=== PATIENT | male | born 1965 | race Caucasian/White ===

== ENCOUNTER 2018-12-14 12:42 | Inpatient (IN) | payer OTHER ==
[2018-12-14 13:36] VITALS: BMI 27.0
--- NOTE | 2018-12-14 15:01 | HP ---
COWS - Scale Resting Pulse: 0= [place] 80 or Below Sweatin= No chills or Flushing Restless Observation: 1= Difficult to Sit Still Pupil Size: 0= Normal to Room Light Bone or Joint Aches: 4=Acute Joint/Muscle Pain Runny Nose/ Eye Tearin= Runny Nose/Eyes GI Upset > 30mins: 2= Nausea/Diarrhea Tremor Observation: 0= None Yawning Observation: 0= None Anxiety or Irritability: 2=Irritable/Anxious Goose Flesh Skin: 0=Smooth Skin COWS Score: 11 CIWA Score - Admission Criteria OAS Guidelines: Admission for Medically Managed Detox: Requires at least one of the followin. CIWA greater than 12 2. Seizures within the past 24 hours 3. Delirium tremens within the past 24 hours 4. Hallucinations within the past 24 hours 5. Acute intervention needed for co occurring medical disorder 6. Acute intervention needed for co occurring psychiatric disorder 7. Severe withdrawal that cannot be handled at a lower level of care (continued vomiting, continued diarrhea, abnormal vital signs) requiring intravenous medication and/or fluids 8. Admission [facility] Allergies/Adverse Reactions: Allergies Allergy/AdvReac Type Severity Reaction Status Date / Time Penicillins Allergy Intermediate Verified 12/14/18 13:29 History of Present Illness: Search Terms: mary shi, 1965 Search Date: 12/14/2018 02:54:11 PM The Drug Utilization Report below displays all of the controlled substance prescriptions, if any, that your patient has filled in the last twelve months. The information displayed on this report is compiled from pharmacy submissions to the Department, and accurately reflects the information as submitted by the pharmacies. This report was requested by: Doreen Lu | Reference #: [id number] Others' Prescriptions Patient Name: Mary Shi Date: 1965 Address: [address] [place] [address] Sex: Male Rx Written Rx Dispensed Drug Quantity Days Supply Prescriber Name 12/04/2018 12/05/2018 buprenorphine-naloxone 8-2 mg sl film 90 30 Ashley Marky 10/09/2018 10/11/2018 buprenorphine-naloxone 8-2 mg sl film 90 30 Marky Ramirez 09/13/2018 09/14/2018 suboxone 8 mg-2 mg sl film 90 30 Marky Ramirez 08/07/2018 08/08/2018 suboxone 8 mg-2 mg sl film 90 30 Marky Ramirez 07/03/2018 07/04/2018 suboxone 8 mg-2 mg sl film 90 30 Yanci Ramirezh 05/17/2018 05/18/2018 suboxone 8 mg-2 mg sl film 90 30 Yanci Ramirezh 05/17/2018 05/17/2018 zolpidem tartrate 5 mg tablet 30 30 Yanci Ramirezh 02/13/2018 02/13/2018 buprenorphine-naloxone 8-2 mg sl tablet 90 30 Marky Ramirez 01/09/2018 01/10/2018 buprenorphine-naloxone 8-2 mg sl tablet 90 30 Marky Ramirez Patient Name: Mary Shi Date: 1965 Address: [address] [place] [address] Sex: Male Rx Written Rx Dispensed Drug Quantity Days Supply Prescriber Name 11/13/2018 11/29/2018 alprazolam 2 mg tablet 30 30 Sandra Trujillo [employer] 10/10/2018 10/10/2018 alprazolam 2 mg tablet 60 30 Sandra Trujillo [employer] 10/10/2018 10/10/2018 zolpidem tartrate 10 mg tablet 30 30 Sandra Trujillo [employer] 09/12/2018 10/02/2018 alprazolam 2 mg tablet 30 30 Sandra Trujillo [employer] ENG[employer]ERING TE[employer] 09/12/2018 09/12/2018 alprazolam 2 mg tablet 60 30 Sandra Trujillo [employer] ENG[employer]ERING TE[employer] 09/12/2018 09/12/2018 zolpidem tartrate 10 mg tablet 30 30 Sandra Trujillo [employer] ENG[employer]ERING TE[employer] 08/15/2018 09/04/2018 alprazolam 2 mg tablet 30 30 Sandra Trujillo [employer] ENG[employer]ERING TE[employer] 08/15/2018 08/16/2018 alprazolam 2 mg tablet 60 30 Sandra Trujillo [employer] ENG[employer]ER[employer] 08/15/2018 08/16/2018 zolpidem tartrate 10 mg tablet 30 30 Sandra Trujillo [employer] ENG[employer]ERING TE[employer] 07/11/2018 08/08/2018 alprazolam 2 mg tablet 30 30 Sandra Trujillo [employer] ENG[employer]ERING TE[employer] 07/11/2018 07/19/2018 zolpidem tartrate 10 mg tablet 30 30 Sandra Trujillo [employer] ENG[employer]ERING TE[employer] 07/11/2018 07/19/2018 alprazolam 2 mg tablet 60 30 Sandra Trujillo [employer] ENGINEERING TE[employer] 06/13/2018 07/10/2018 alprazolam 2 mg tablet 30 30 Sandra Trujillo [employer] ENG[employer]ERING TE[employer] 06/13/2018 06/19/2018 zolpidem tartrate 10 mg tablet 30 30 Sandra Trujillo [employer] ENGINEERING TE[employer] 06/13/2018 06/19/2018 alprazolam 2 mg tablet 60 20 Sandra Trujillo [employer] ENG[employer]ER[employer] 05/16/2018 05/18/2018 alprazolam 2 mg tablet 60 30 Sandra Trujillo [employer] Patient Name: Mary Shi Date: 1965 Address: [address] [facility] [address] [place] [address] Sex: Male Rx Written Rx Dispensed Drug Quantity Days Supply Prescriber Name 04/18/2018 04/18/2018 zolpidem tartrate 10 mg tablet 30 30 Sandra Trujillo [employer] 04/18/2018 04/18/2018 alprazolam 2 mg tablet 30 30 Sandra Trujillo [employer] ENGINEERING TE[employer]ER 04/18/2018 04/18/2018 alprazolam 2 mg tablet 60 30 Sandra Trujillo [employer] ENGINEERING TE[employer]ER 03/21/2018 03/21/2018 zolpidem tartrate 10 mg tablet 30 30 Sandra Trujillo [employer] ENGINEERING TE[employer] 03/21/2018 03/21/2018 alprazolam 2 mg tablet 30 30 Sandra Trujillo [employer] ENGINEERING TE[employer]ER 03/21/2018 03/21/2018 alprazolam 2 mg tablet 60 30 Sandra Trujillo [employer] ENGINEERING TE[employer]ER 02/21/2018 02/21/2018 zolpidem tartrate 10 mg tablet 30 30 Sandra Trujillo [employer]CH[employer] ENGINEERING TE[employer]ER 02/21/2018 02/21/2018 alprazolam 2 mg tablet 30 30 Sandra Trujillo [employer] ENGINEERING TE[employer]ER 02/21/2018 02/21/2018 alprazolam 2 mg tablet 60 20 Sandra Trujillo [employer] ENGINEERING TE[employer]ER 01/24/2018 01/24/2018 alprazolam 2 mg tablet 60 30 Sandra Trujillo [employer] ENGINEERING TE[employer]ER 01/24/2018 01/24/2018 alprazolam 2 mg tablet 30 30 Sandra Trujillo [employer] ENGINEERING TE[employer]ER 01/24/2018 01/24/2018 zolpidem tartrate 10 mg tablet 30 30 Sandra Trujillo [employer] ENGINEERING TE[employer]ER 12/27/2017 12/27/2017 alprazolam 2 mg tablet 60 30 Sandra Trujillo [employer] ENGINEERING TEACHER 12/27/2017 12/27/2017 alprazolam 2 mg tablet 30 30 Sandra Trujillo [employer] ENGINEERING TE[employer]ER 12/27/2017 12/27/2017 zolpidem tartrate 10 mg tablet 30 30 Sandra Trujillo [employer] ENGINEERING TE[employer]ER * - Drugs marked with an asterisk are compound drugs. If the compound drug is made up of more than one controlled substance, then each controlled substance will be a separate row in the table. Click the Report Suspicious Activity button to report information related to controlled substance suspicious activity to the [employer]. Click the Send Questions/Comments button to send questions about this report to the [employer], or call . Click the Substance Abuse Treatment Information button to go to the Office of Alcoholism and Substance Abuse Services website, www.[place].gov or call 1- 780.936.6108. pt here requesting detox from heroin use , reports 7-10 bags/day via inhalation , denies ivdu , claims loss of apartment several days ago and " lost all my medication " , latest heroin use yesterday 9 pm , current symptoms as above , first age of use 35 , denies significant sobriety since , OD x 1 6 months ago , narcan @ [facility] . States he was @ [facility] today , no beds available, referred to this facility . denies MMTP tobAcco : 1/2 ppd denies other illicits or etoh PMhx : seizure d/o since 30 yrs ago ( strong FHX seizure d/o , denies injuries ) , HTN PSHX : r hand laceration psych : depression , bipolar d/o , + suicide attempt most recently 1 yr ago by hanging , taken to [facility], total lifetime attemtpts : 2 , denies current SI / HI . SHX : homeless, unemployed , finances habit through [employer] funds , denies legal issues . Exam Limitations: Clinical Condition - Ebola screening Have you traveled outside of the country in the last 21 days: No Have you had contact with anyone from an Ebola affected area: No Do you have a fever: No - Review of Systems Constitutional: See HPI, Loss of Appetite EENT: reports: See HPI Respiratory: reports: No Symptoms reported Cardiac: reports: No Symptoms Reported GI: reports: See HPI : reports: No Symptoms Reported Musculoskeletal: reports: See HPI Integumentary: reports: No Symptoms Reported Neuro: reports: See HPI Endocrine: reports: No Symptoms Reported (denies DM) Psychiatric: reports: Orientated x3, Anxious Patient History - Smoking Cessation Smoking history: Current every day smoker Have you smoked in the past 12 months: Yes Initiated information on smoking cessation: No - Substances abused Heroin Substance route: Inhalation Frequency: Daily Amount used: 10BAGS Age of first use: 35 Date of last use: 12/13/18 Family Disease History - Family Disease History Family Disease History: Heart Disease: Father (d. 70 mi ), Brother (d. 55 mi ), Other: Father, Brother Admission Physical Exam BHS - Vital Signs Vital Signs: Vital Signs - 24 hr 12/14/18 13:15 Temperature 98.6 F Pulse Rate 57 L Respiratory 18 Rate Blood Pressure 140/79 - Physical General Appearance: Yes: Disheveled, Moderate Distress, Anxious, Other (poor personal hygiene) HEENTM: Yes: EOMI, Hearing grossly Normal, Normocephalic, Normal Voice, Other ( upper and lower dentures) Respiratory: Yes: Chest Non-Tender, Lungs Clear, Normal Breath Sounds Neck: Yes: No masses,lesions,Nodules, Trachea in good position Cardiology: Yes: Regular Rhythm, Regular Rate, S1, S2 Abdominal: Yes: Non Tender, Soft, Protuberent Back: Yes: Normal Inspection Musculoskeletal: Yes: Gait Steady Extremities: Yes: Normal Range of Motion, Non-Tender Neurological: Yes: Alert, Motor Strength 5/5 Integumentary: Yes: Warm - Diagnostic (1) Opiate dependence Current Visit: Yes Status: Acute Qualifiers: Substance use status: in withdrawal Qualified Code(s): F11.23 - Opioid dependence with withdrawal (2) Nicotine dependence Current Visit: Yes Status: Chronic Qualifiers: Nicotine product type: cigarettes Breathalyzer - Breathalyzer Breathalyzer: 0 Urine Drug Screen - Test Device Lot number: [id number] Expiration date: 08/31/20 - Control Is test valid?: Yes - Results Drug screen NEGATIVE: No Urine drug screen results: MOP-Opiates, OXY-Oxycodone, MTD-Methadone, BZO- Benzodiazepines Inpatient Rehab Admission - Rehab Decision to Admit Inpatient rehab admission?: No
[2018-12-14] MEDS ORDERED: MELATONIN 5 MG TABLETS PO PRN (15:24)
[2018-12-14] MEDS ORDERED: BISMUTH SUBSALICYLATE 524 MG/30 ML UD PO PRN (15:24)
[2018-12-14] MEDS ORDERED: MAGNESIUM HYDROX 2400MG/30ML ORAL SUSPENSION 30 ML CUP PO PRN (15:24)
[2018-12-14] MEDS ORDERED: METHOCARBAMOL 500 MG TABLET PO PRN (15:24)
[2018-12-14] MEDS ORDERED: MAGNESIUM CITRATE 300 ML BOTTLE PO PRN (15:24)
[2018-12-14] MEDS ORDERED: IBUPROFEN 400 MG TABLET (FP) PO PRN (15:24)
[2018-12-14] MEDS ORDERED: MAG HYDROX/AL HYDROX/SIMETH 30 ML UNIT-DOSE CUP PO PRN (15:24)
[2018-12-14] MEDS ORDERED: DICYCLOMINE HCL 10 MG CAPSULE PO PRN (15:24)
[2018-12-14] MEDS ORDERED: cloNIDine HCL 0.1 MG TABLET PO PRN (15:24)
[2018-12-14] MEDS ORDERED: ACETAMINOPHEN 325 MG TABLET (FP) PO PRN ×2 (15:24)
[2018-12-14] MEDS ORDERED: MENTHOL/PHENOL 1 EACH UD MM PRN (15:24)
[2018-12-14] MEDS: chlordiazePOXIDE HCL 10 MG CAPSULE PO PRN (16:33)
[2018-12-14] MEDS ORDERED: METHADONE HCL 10 MG TABLET (FOR DETOX USE ONLY) PO ONE ×2 (18:00→23:00)
[2018-12-14] MEDS: PHENYTOIN NA EXTENDED 100 MG CAPSULE (FP) PO SCH (22:53)
[2018-12-14] MEDS: chlordiazePOXIDE HCL 25 MG CAPSULE PO SCH (22:53)
[2018-12-14] MEDS: THIAMINE HCL 100 MG TABLET (FP) PO SCH (22:53)
[2018-12-15] MEDS: chlordiazePOXIDE HCL 25 MG CAPSULE PO SCH ×2 (05:59→12:46)
[2018-12-15] MEDS ORDERED: METHADONE HCL 5 MG TABLET (FOR DETOX USE ONLY) PO ONE (10:00)
[2018-12-15 10:07] LABS: HEMATOCRIT 42.7 % (35.4-49); MCH 31.4 pg (25.7-33.7); MCHC 32.8 g/dl (32.0-35.9); MEAN CELL VOLUME 95.8 fl (80-96); MEAN PLT VOLUME 9.6 fl (7.5-11.1); PLATELET COUNT 170 K/MM3 (134-434); RBC 4.46 M/mm3 (4.00-5.60); RDW 14.5 % (11.9-15.9); WHITE BLOOD COUNT 5.6 K/mm3 (4.0-10.0)
[2018-12-15 10:08] LABS: ALBUMIN 3.3 g/dl (3.4-5.0); BILIRUBIN,TOTAL 0.2 mg/dL (0.2-1); CALCIUM 8.3 mg/dL (8.5-10.1); CREATININE 0.7 mg/dL (0.55-1.3); POTASSIUM 4.2 mmol/L (3.5-5.1); TOT PROT 6.4 g/dl (6.4-8.2)
[2018-12-15] MEDS: levETIRAcetam 500 MG TABLET (FP) PO SCH (10:11)
[2018-12-15] MEDS: PRENATAL VITAMINS W/ FOLIC ACID TABLET (FP) PO SCH (10:11)
[2018-12-15] MEDS: PHENYTOIN NA EXTENDED 100 MG CAPSULE (FP) PO SCH ×2 (10:11→22:11)
[2018-12-15] MEDS ORDERED: FLU VACCINE QUAD 60 MCG/0.5 ML (MDV 18-19) IM ONE (12:00)
[2018-12-15] MEDS ORDERED: PNEUMOC 13-VAL CONJ-DIP CRM/PF 0.5 ML DISP.SYRIN IM ONE (12:00)
[2018-12-15] MEDS ORDERED: PNEUMOCOCCAL 23 VACCINE 0.5 ML VIAL IM ONE (12:00)
--- NOTE | 2018-12-15 13:38 | EKG ---
Test Reason : Blood Pressure : / mmHG Vent. Rate : 056 BPM Atrial Rate : 056 BPM P-R Int : 128 ms QRS Dur : 088 ms QT Int : 422 ms P-R-T Axes : 007 052 043 degrees QTc Int : 407 ms SINUS BRADYCARDIA OTHERWISE NORMAL ECG NO PREVIOUS ECGS AVAILABLE Confirmed by JUAN CARLOS WILLIAMSON MD ([id number]) on 12/15/2018 1:38:06 PM Referred By: Confirmed By:JUAN CARLOS WILLIAMSON MD
[2018-12-15] MEDS ORDERED: LIDOCAINE VISCOUS 2% ORAL/TOP 20 ML UNIT-DOSE CUP MM PRN (14:47)
--- NOTE | 2018-12-15 14:51 | PN ---
BHS COWS - Scale Resting Pulse: 1= [place] 81-100 Sweatin= Chills/Flushing Restless Observation: 1= Difficult to Sit Still Pupil Size: 0= Normal to Room Light Bone or Joint Aches: 2= Severe Diffuse Aches Runny Nose/ Eye Tearin= None GI Upset > 30mins: 1= Stomach Cramp Tremor Observation of Outstretched Hands: 0= None Yawning Observation: 1= 1-2x During Session Anxiety or Irritability: 2=Irritable/Anxious Goose Flesh Skin: 3=Piloerection COWS Score: 12 BHS Progress Note (SOAP) Subjective: Stomach Cramping, Anxious, Body Aches. Objective: PATIENT A & O X 2 (UNCERTAIN ABOUT CURRENT DAY / DATE). PATIENT OBSERVED AMBULATING ON UNIT UNASSISTED. IN NO ACUTE DISTRESS. 12/15/18 14:50 Vital Signs Temperature 98.4 F 12/15/18 13:10 Pulse Rate 69 12/15/18 13:10 Respiratory Rate 18 12/15/18 13:10 Blood Pressure 131/89 12/15/18 13:10 O2 Sat by Pulse Oximetry (%) Laboratory Tests 12/15/18 12/15/18 12/15/18 07:00 07:00 07:00 WBC 5.6 RBC 4.46 Hgb 14.0 Hct 42.7 MCV 95.8 MCH 31.4 MCHC 32.8 RDW 14.5 Plt Count 170 MPV 9.6 Sodium 139 Potassium 4.2 Chloride 106 Carbon Dioxide 27 Anion Gap 6 L BUN 17 Creatinine 0.7 Est GFR (CKD-EPI)AfAm 124.87 Est GFR (CKD-EPI)NonAf 107.74 Random Glucose 111 H Calcium 8.3 L Total Bilirubin 0.2 AST 9 L ALT 29 Alkaline Phosphatase 96 Total Protein 6.4 Albumin 3.3 L Phenytoin < 0.4 L RPR Titer 12/15/18 07:00 WBC RBC Hgb Hct MCV MCH MCHC RDW Plt Count MPV Sodium Potassium Chloride Carbon Dioxide Anion Gap BUN Creatinine Est GFR (CKD-EPI)AfAm Est GFR (CKD-EPI)NonAf Random Glucose Calcium Total Bilirubin AST ALT Alkaline Phosphatase Total Protein Albumin Phenytoin RPR Titer Nonreactive LABS NOTED. ADMISSION DILATNIN LEVEL NOTED TO BE LOW. 12/15/18 14:53 Assessment: 12/15/18 14:50 WITHDRAWAL SYMPTOMS. ORAL / GUM INFECTION. LOW DILANTIN LEVEL. 12/15/18 14:53 Plan: CONTINUE DETOX. DILANTIN, 300 MG PO X 1 DOSE ORDERED (200 MG PO BID ALREADY ORDERED) FOR LOW DILANTIN LEVEL NOTED ON DETOX ADMISSION. PATIENT REPORTS DISCOMFORT ON LOWER GUM AREA (ANTERIOR) X APPROX. 1 MONTH. PATIENT REPORTS THAT HE BELIEVES THIS TO BE DUE TO PROBLEM THAT HE HAS BEEN HAVING WITH HIS LOWER DENTURE RECENTLY. CLINDAMYCIN PO ORDERED, PRN VISCOUS LIDOCAINE MOUTHWASH ORDERED FOR ORAL DISCOMFORT.
[2018-12-15] MEDS ORDERED: PHENYTOIN NA EXTENDED 100 MG CAPSULE (FP) PO ONE (14:52)
--- NOTE | 2018-12-15 15:50 | CONSULT ---
[facility] Psychiatric Consult - Data Date of interview: 12/15/18 Admission source: [facility] Identifying data: [facility] ([facility]). Examined at [address] [place] [address]. Patient is ( three years ago), no children, homeless, unemployed and supported on SSI benefits. Substance Abuse History: Discussed in session. patient confirmed use of heroin via snorting for past 20 years. Details in current [facility] report : Smoking history : Current every day smoker. Have you smoked in the past 12 months: Yes. Initiated information on smoking cessation: No. Substances abused. Heroin. Substance route: Inhalation. Frequency: Daily. Amount used: 10BAGS. Age of first use: 35. Date of last use: 12/13/18 Medical History: Seizure disorder (on levetiracetam). Psychiatric History: Patient endorses a history of multiple psychiatric hospitalizations ([facility]). Spent six consecutive months at [facility], a psychiatric institution in [facility]. Diagnosed with MDD and Bipolar Disorder. Mr Mosqueda sees a psychiatrist, at [facility] in the [place], for medication management (gabapentin 300 mg/ tid + olanzapine 15 mg/hs + cogentin 1 mg/day and xanax (dose not recalled). Patient admits to being inconsistent with medication intake. He reports a family history of completed suicides (a brother killed himself via hanging 14 years ago + a sister fatally shot herself 10 years ago). Patient, himself, has made three serious suicide attempts via hanging (most recent attempt occurred in 2018). Physical/Sexual Abuse/Trauma History: Denies history of abuse. Heavy trauma : two siblings committed suicide, recent of , homelessness, financial difficulties and absence of a support network. Additional Comment: Urine drug screen results: MOP-Opiates, OXY-Oxycodone, MTD- Methadone, BZO-Benzodiazepines. Noted. Mental Status Exam - Mental Status Exam Alert and Oriented to: Time, Place, Person Cognitive Function: Grossly Intact Patient Appearance: Unkempt, Disheveled Mood: Angry, Nervous, Withdrawn, Anxious, Irritable Affect: Mood Congruent, Constricted Patient Behavior: Fatigued, Talkative, Cooperative Speech Pattern: Clear, Appropriate Voice Loudness: Normal Thought Process: Goal Oriented Thought Disorder: Not Present Hallucinations: Denies Suicidal Ideation: Denies (no active suicidal ideation elicited but the patient indicates that he feels safe in this environment; motivated for rehabilitative care but feels apprehensive about returniing to the community-that is, the streets-to wait for bed vacancy; fearful of losing control if denied access to rehabilitation) Homicidal Ideation: Denies Insight/Judgement: Poor Sleep: Poorly, Difficulty falling asleep Appetite: Poor, Weight loss Muscle strength/Tone: Normal Gait/Station: Normal Psychiatric Findings - Problem List (Calvin 1, 2,3) (1) Opioid dependence Current Visit: Yes Status: Chronic (2) Nicotine dependence Current Visit: Yes Status: Chronic Qualifiers: Nicotine product type: cigarettes (3) Substance induced mood disorder Current Visit: Yes Status: Chronic (4) History of bipolar disorder Current Visit: Yes Status: Chronic (5) Insomnia Current Visit: Yes Status: Chronic - Initial Treatment Plan Initial Treatment Plan: Psychoeducation. Support and empathy provided in this session. Case discussed with Multidisciplinary treatment team (see counselor's note). Relapse prevention (MAT) : discussed with the patient. Sleep hygiene. NA meetings. Groups. Medications resumed as : olanzapine 15 mg po hs + celexa 20 mg po daily + gabapentin 100 mg po tid. Side effects/benefits of these drugs are discussed with patient. Mr Mosqueda verbally consented to follow this regimen in addition to detoxification protocol. Observation. Drug Utilization survey confirms refills for olanzapine + cogentin + citalopram + xanax + buprenorphine at [facility] on 10/09/18 + + 12/04/18 + 12/11/18.
[2018-12-15] MEDS: chlordiazePOXIDE HCL 10 MG CAPSULE PO PRN (17:43)
[2018-12-15] MEDS: CLINDAMYCIN HCL 150 MG CAPSULE (FP) PO SCH ×2 (17:44→22:10)
[2018-12-15] MEDS ORDERED: MIRTAZAPINE 15 MG TABLET (FP) PO SCH (22:00)
[2018-12-15] MEDS: chlordiazePOXIDE 5 MG CAPSULE PO SCH (22:10)
[2018-12-15] MEDS: THIAMINE HCL 100 MG TABLET (FP) PO SCH (22:10)
[2018-12-15] MEDS: GABAPENTIN 100 MG CAPSULE (FP) PO SCH (22:10)
[2018-12-16] MEDS: CLINDAMYCIN HCL 150 MG CAPSULE (FP) PO SCH ×3 (05:59→22:56)
[2018-12-16] MEDS: chlordiazePOXIDE 5 MG CAPSULE PO SCH ×2 (06:00→14:32)
[2018-12-16] MEDS: GABAPENTIN 100 MG CAPSULE (FP) PO SCH ×3 (06:00→22:56)
[2018-12-16] MEDS ORDERED: METHADONE HCL 10 MG TABLET (FOR DETOX USE ONLY) PO ONE (10:00)
[2018-12-16] MEDS: PRENATAL VITAMINS W/ FOLIC ACID TABLET (FP) PO SCH (10:07)
[2018-12-16] MEDS: PHENYTOIN NA EXTENDED 100 MG CAPSULE (FP) PO SCH ×2 (10:07→22:56)
[2018-12-16] MEDS: levETIRAcetam 500 MG TABLET (FP) PO SCH (10:07)
[2018-12-16] MEDS: CITALOPRAM HYDROBROMIDE 20 MG TABLET (FP) PO SCH (10:07)
--- NOTE | 2018-12-16 13:11 | PN ---
[facility] Progress Note Note: Psychiatry Attending's note : Met with the patient. Feels anxious. Apprehensive about discharge tomorrow. Mr Ann wants to stay for rehabilitation at [facility]. Reports insomnia. Denies hearing voices at this time. Resumed : olanzapine 5 mg po NOW. olanzapine 10 mg po hs Side effects/benefits discussed with the patient. Reassurance given. Case discussed with counselor. Transfer to [facility] : in process.
[2018-12-16] MEDS ORDERED: OLANZapine 5 MG TABLET PO ONE (13:15)
--- NOTE | 2018-12-16 13:15 | PN ---
BHS COWS - Scale Resting Pulse: 0= [place] 80 or Below Sweatin= Chills/Flushing Restless Observation: 0= Sits Still Pupil Size: 0= Normal to Room Light Bone or Joint Aches: 1= Mild Discomfort Runny Nose/ Eye Tearin= None GI Upset > 30mins: 0= None Tremor Observation of Outstretched Hands: 1= Tremor Grant, Not Seen Yawning Observation: 1= 1-2x During Session Anxiety or Irritability: 1=Feels Anxious/Irritable Goose Flesh Skin: 0=Smooth Skin COWS Score: 5 BHS Progress Note (SOAP) Subjective: REPORTS DETOX PROCEEDING WELL AND MEDS EFFECTIVE. OOB AMBULATING WITH STEADY GAIT. Objective: 12/16/18 13:19 Vital Signs 12/16/18 12/16/18 06:09 09:41 Temperature 98.3 F 97.7 F Pulse Rate 70 67 Respiratory 18 18 Rate Blood Pressure 105/65 136/72 Laboratory Tests 12/15/18 12/15/18 12/15/18 07:00 07:00 07:00 WBC 5.6 RBC 4.46 Hgb 14.0 Hct 42.7 MCV 95.8 MCH 31.4 MCHC 32.8 RDW 14.5 Plt Count 170 MPV 9.6 Sodium 139 Potassium 4.2 Chloride 106 Carbon Dioxide 27 Anion Gap 6 L BUN 17 Creatinine 0.7 Est GFR (CKD-EPI)AfAm 124.87 Est GFR (CKD-EPI)NonAf 107.74 Random Glucose 111 H Calcium 8.3 L Total Bilirubin 0.2 AST 9 L ALT 29 Alkaline Phosphatase 96 Total Protein 6.4 Albumin 3.3 L Phenytoin < 0.4 L RPR Titer 12/15/18 07:00 WBC RBC Hgb Hct MCV MCH MCHC RDW Plt Count MPV Sodium Potassium Chloride Carbon Dioxide Anion Gap BUN Creatinine Est GFR (CKD-EPI)AfAm Est GFR (CKD-EPI)NonAf Random Glucose Calcium Total Bilirubin AST ALT Alkaline Phosphatase Total Protein Albumin Phenytoin RPR Titer Nonreactive Assessment: 12/16/18 13:19 WITHDRAWAL SX Plan: CONTINUE DETOX
[2018-12-16] MEDS ORDERED: chlordiazePOXIDE HCL 10 MG CAPSULE PO PRN (21:00)
[2018-12-16] MEDS: OLANZapine 10 MG TABLET PO SCH (22:56)
[2018-12-16] MEDS: chlordiazePOXIDE HCL 10 MG CAPSULE PO SCH (22:56)
[2018-12-16] MEDS: THIAMINE HCL 100 MG TABLET (FP) PO SCH (22:56)
[2018-12-17] MEDS ORDERED: METHADONE HCL 5 MG TABLET (FOR DETOX USE ONLY) PO ONE (06:00)
[2018-12-17] MEDS: chlordiazePOXIDE HCL 10 MG CAPSULE PO SCH ×3 (06:49→22:27)
[2018-12-17] MEDS: GABAPENTIN 100 MG CAPSULE (FP) PO SCH ×3 (06:50→22:27)
[2018-12-17] MEDS: CLINDAMYCIN HCL 150 MG CAPSULE (FP) PO SCH ×3 (06:50→22:27)
[2018-12-17] MEDS ORDERED: PHENYTOIN NA EXTENDED 100 MG CAPSULE (FP) PO ONE (10:00)
[2018-12-17] MEDS: levETIRAcetam 500 MG TABLET (FP) PO SCH (10:33)
[2018-12-17] MEDS: CITALOPRAM HYDROBROMIDE 20 MG TABLET (FP) PO SCH (10:33)
[2018-12-17] MEDS: PHENYTOIN NA EXTENDED 100 MG CAPSULE (FP) PO SCH ×2 (10:33→22:27)
--- NOTE | 2018-12-17 13:51 | PN ---
[facility] CIWA - CIWA Score Nausea/Vomitin-No Nausea/No Vomiting Muscle Tremors: 2 Anxiety: 2 Agitation: 2 Paroxysmal Sweats: No Perspiration Orientation: 0-Oriented Tacttile Disturbances: 0-None Auditory Disturbances: 0-None Visual Disturbances: 0-None Headache: 0-None Present CIWA-Ar Total Score: 6 S COWS - Scale Resting Pulse: 0= [place] 80 or Below Sweatin= Chills/Flushing Restless Observation: 0= Sits Still Pupil Size: 0= Normal to Room Light Bone or Joint Aches: 1= Mild Discomfort Runny Nose/ Eye Tearin= None GI Upset > 30mins: 0= None Tremor Observation of Outstretched Hands: 0= None Yawning Observation: 0= None Anxiety or Irritability: 1=Feels Anxious/Irritable Goose Flesh Skin: 0=Smooth Skin COWS Score: 3 [facility] Progress Note (SOAP) Subjective: long history of schizophrenia auditory hallucination and seizure low dilantin serum level 0.4 loading dose 400mg divided multivitamin to 2 pm Objective: 12/17/18 13:54 Vital Signs Temperature 97.3 F L 12/17/18 13:37 Pulse Rate 79 12/17/18 13:37 Respiratory Rate 18 12/17/18 13:37 Blood Pressure 119/70 12/17/18 13:37 O2 Sat by Pulse Oximetry (%) Laboratory Last Values WBC 5.6 K/mm3 (4.0-10.0) 12/15/18 07:00 RBC 4.46 M/mm3 (4.00-5.60) 12/15/18 07:00 Hgb 14.0 GM/dL (11.7-16.9) 12/15/18 07:00 Hct 42.7 % (35.4-49) 12/15/18 07:00 MCV 95.8 fl (80-96) 12/15/18 07:00 MCH 31.4 pg (25.7-33.7) 12/15/18 07:00 MCHC 32.8 g/dl (32.0-35.9) 12/15/18 07:00 RDW 14.5 % (11.9-15.9) 12/15/18 07:00 Plt Count 170 K/MM3 (134-434) 12/15/18 07:00 MPV 9.6 fl (7.5-11.1) 12/15/18 07:00 Sodium 139 mmol/L (136-145) 12/15/18 07:00 Potassium 4.2 mmol/L (3.5-5.1) 12/15/18 07:00 Chloride 106 mmol/L (98-107) 12/15/18 07:00 Carbon Dioxide 27 mmol/L (21-32) 12/15/18 07:00 Anion Gap 6 MMOL/L (8-16) L 12/15/18 07:00 BUN 17 mg/dL (7-18) 12/15/18 07:00 Creatinine 0.7 mg/dL (0.55-1.3) 12/15/18 07:00 Est GFR (CKD-EPI)AfAm 124.87 12/15/18 07:00 Est GFR (CKD-EPI)NonAf 107.74 12/15/18 07:00 Random Glucose 111 mg/dL (74-106) H 12/15/18 07:00 Calcium 8.3 mg/dL (8.5-10.1) L 12/15/18 07:00 Total Bilirubin 0.2 mg/dL (0.2-1) 12/15/18 07:00 AST 9 U/L (15-37) L 12/15/18 07:00 ALT 29 U/L (13-61) 12/15/18 07:00 Alkaline Phosphatase 96 U/L (45-117) 12/15/18 07:00 Total Protein 6.4 g/dl (6.4-8.2) 12/15/18 07:00 Albumin 3.3 g/dl (3.4-5.0) L 12/15/18 07:00 Phenytoin < 0.4 ug/ml (10.0-20.0) L 12/15/18 07:00 RPR Titer Nonreactive (NONREACTIVE) 12/15/18 07:00 lab noted Assessment: 12/17/18 13:56 mild alcohol and opiate withdrawal sx seizure Plan: continue detox repeat dilantin level
[2018-12-17] MEDS ORDERED: PRENATAL VITAMINS W/ FOLIC ACID TABLET (FP) PO SCH (14:00)
[2018-12-17] MEDS: OLANZapine 10 MG TABLET PO SCH (22:27)
[2018-12-17] MEDS: THIAMINE HCL 100 MG TABLET (FP) PO SCH (22:27)
[2018-12-18] MEDS ORDERED: hydrOXYzine PAMOATE 50 MG CAPSULE (FP) PO PRN (01:39)
[2018-12-18] MEDS: GABAPENTIN 100 MG CAPSULE (FP) PO SCH (06:11)
[2018-12-18] MEDS: CLINDAMYCIN HCL 150 MG CAPSULE (FP) PO SCH (06:12)
[2018-12-18 09:21] VITALS: BP 147/95; PULSE 83; TEMP 96.9
[2018-12-18] MEDS: CITALOPRAM HYDROBROMIDE 20 MG TABLET (FP) PO SCH (10:05)
[2018-12-18] MEDS: PHENYTOIN NA EXTENDED 100 MG CAPSULE (FP) PO SCH (10:06)
[2018-12-18] MEDS: levETIRAcetam 500 MG TABLET (FP) PO SCH (10:07)
--- NOTE | 2018-12-18 12:55 | DS ---
[facility] Detox Discharge Summary Admission Date: 12/14/18 Discharge Date: 12/18/18 - History Present History: Alcohol Dependence, Opioid Dependence Additional Comments: 53 years old male admitted on 12/14/18 for alcohol and opiate withdrawal stabilization completed detox regimen [facility] - Physical Exam Results Vital Signs: Vital Signs Temperature 96.9 F L 12/18/18 09:20 Pulse Rate 83 12/18/18 09:20 Respiratory Rate 18 12/18/18 09:20 Blood Pressure 147/95 12/18/18 09:20 O2 Sat by Pulse Oximetry (%) Pertinent Admission Physical Exam Findings: alcohol and opiate withdrawal sx Laboratory Last Values WBC 5.6 K/mm3 (4.0-10.0) 12/15/18 07:00 RBC 4.46 M/mm3 (4.00-5.60) 12/15/18 07:00 Hgb 14.0 GM/dL (11.7-16.9) 12/15/18 07:00 Hct 42.7 % (35.4-49) 12/15/18 07:00 MCV 95.8 fl (80-96) 12/15/18 07:00 MCH 31.4 pg (25.7-33.7) 12/15/18 07:00 MCHC 32.8 g/dl (32.0-35.9) 12/15/18 07:00 RDW 14.5 % (11.9-15.9) 12/15/18 07:00 Plt Count 170 K/MM3 (134-434) 12/15/18 07:00 MPV 9.6 fl (7.5-11.1) 12/15/18 07:00 Sodium 139 mmol/L (136-145) 12/15/18 07:00 Potassium 4.2 mmol/L (3.5-5.1) 12/15/18 07:00 Chloride 106 mmol/L (98-107) 12/15/18 07:00 Carbon Dioxide 27 mmol/L (21-32) 12/15/18 07:00 Anion Gap 6 MMOL/L (8-16) L 12/15/18 07:00 BUN 17 mg/dL (7-18) 12/15/18 07:00 Creatinine 0.7 mg/dL (0.55-1.3) 12/15/18 07:00 Est GFR (CKD-EPI)AfAm 124.87 12/15/18 07:00 Est GFR (CKD-EPI)NonAf 107.74 12/15/18 07:00 Random Glucose 111 mg/dL (74-106) H 12/15/18 07:00 Calcium 8.3 mg/dL (8.5-10.1) L 12/15/18 07:00 Total Bilirubin 0.2 mg/dL (0.2-1) 12/15/18 07:00 AST 9 U/L (15-37) L 12/15/18 07:00 ALT 29 U/L (13-61) 12/15/18 07:00 Alkaline Phosphatase 96 U/L (45-117) 12/15/18 07:00 Total Protein 6.4 g/dl (6.4-8.2) 12/15/18 07:00 Albumin 3.3 g/dl (3.4-5.0) L 12/15/18 07:00 Phenytoin 13.3 ug/ml (10.0-20.0) 12/18/18 09:10 RPR Titer Nonreactive (NONREACTIVE) 12/15/18 07:00 lab noted - Treatment Hospital Course: Detox Protocol Followed, Detoxed Safely, Responded well, Discharged Condition Good, Rehab Referral Accepted Patient has Accepted a [facility] Referral to: [facility] - Medication Discharge Medications: Ambulatory Orders Phenytoin Na Extended [Dilantin -] 200 mg PO BID 12/14/18 levETIRAcetam [Keppra -] 500 mg PO DAILY 12/14/18 Zyprexa - 10 mg PO DAILY 12/18/18 - Diagnosis (1) Alcohol dependence with uncomplicated withdrawal Current Visit: Yes Status: Acute (2) Opioid dependence with withdrawal Current Visit: Yes Status: Acute (3) Schizophrenia Current Visit: Yes Status: Suspected Qualifiers: Schizophrenia type: unspecified Qualified Code(s): F20.9 - Schizophrenia, unspecified (4) Nicotine dependence Current Visit: Yes Status: Acute Qualifiers: Nicotine product type: cigarettes Substance use status: in withdrawal Qualified Code(s): F17.213 - Nicotine dependence, cigarettes, with withdrawal (5) Seizure Current Visit: Yes Status: Chronic - AMA Did Patient Leave Against Medical Advice: No
== END 2018-12-18 12:02 | disposition other institution (70) | DRG 773 ==
LOC: YASAS 12:42 → Y3N 15:50
PROVIDERS: ADMIT Surgery; ATTEND Surgery
PROC: HZ2ZZZZ Detoxification Services for Substance Abuse Treatment (ICD-10-PCS; principal; 2018-12-14)
DX: F10.230 Alcohol dependence with withdrawal, uncomplicated (principal); F11.23 Opioid dependence with withdrawal; F17.213 Nicotine dependence, cigarettes, with withdrawal; F19.24 Other psychoactive substance dependence with psychoactive substance-induced mood disorder; F20.9 Schizophrenia, unspecified; F31.9 Bipolar disorder, unspecified; G40.909 Epilepsy, unspecified, not intractable, without status epilepticus; G47.00 Insomnia, unspecified; K05.10 Chronic gingivitis, plaque induced; Z88.0 Allergy status to penicillin
CPT/HCPCS: 36415; 71045-TC-FY; 80053; 80185; 85027; 86593; 90688; 90732; 93005; 93010; G0008; G0009